=== PATIENT | female | born 1980 | race Caucasian/White ===

== ENCOUNTER → 2017-06-19 | Emergency (ER) | payer BC ==
[~2017-06-19] VITALS: Ht 160 cm; Wt 76.2 kg
[~2017-06-19] MED LIST: KEFLEX500 MG PO; KETOROLAC TROME10 MG PO; MUCINEX D ER 11 EACH PO
== END | disposition home or self-care (01) ==
LOC: ER 17:39
DX: B34.9 Viral infection, unspecified (principal); N39.0 Urinary tract infection, site not specified; M94.0 Chondrocostal junction syndrome [Tietze]

== ENCOUNTER → 2017-06-23 19:41 | Outpatient (CLI) | payer BC | END | disposition home or self-care (01) | LOC: RAD 19:41 | DX: R07.9 Chest pain, unspecified (principal) ==

== ENCOUNTER → 2017-06-25 | Outpatient (CLI) | payer OTHER ==
[~2017-06-25] VITALS: Ht 152.4 cm; Wt 72.6 kg
== END | disposition home or self-care (01) ==
LOC: PPHC 12:18
DX: M94.0 Chondrocostal junction syndrome [Tietze] (principal); I10 Essential (primary) hypertension

== ENCOUNTER 2017-07-23 11:32 | Emergency (ER) | payer BC ==
[~2017-07-23] VITALS: Ht 160 cm; Wt 72.6 kg
== END 2017-07-23 16:16 | disposition home or self-care (01) ==
LOC: ER 11:32
DX: S60.052A Contusion of left little finger without damage to nail, initial encounter (principal); W23.0XXA Caught, crushed, jammed, or pinched between moving objects, initial encounter; Y93.89 Activity, other specified; Y92.89 Other specified places as the place of occurrence of the external cause; Y99.8 Other external cause status

== ENCOUNTER 2017-08-12 06:35 | Emergency (ER) | payer BC ==
[~2017-08-12] VITALS: Ht 160 cm; Wt 77.1 kg
[2017-08-12] MEDS ORDERED: INTESTINEX680 M1 PO (10:31)
[2017-08-12] MEDS ORDERED: AUGMENTIN PO (10:31)
== END 2017-08-12 11:02 | disposition home or self-care (01) ==
LOC: ER 06:35
DX: J35.01 Chronic tonsillitis (principal)